=== PATIENT | female | born 1960 | race Caucasian/White ===

== ENCOUNTER 2017-06-16 15:50 | Emergency (ER) | payer OTHER ==
[~2017-06-16] VITALS: Ht 162.6 cm; Wt 136.1 kg
== END 2017-06-16 20:34 | disposition home or self-care (01) ==
LOC: ER 15:50
DX: R10.11 Right upper quadrant pain (principal)

== ENCOUNTER 2018-08-19 18:29 | Emergency (ER) | payer OTHER ==
[~2018-08-19] VITALS: Ht 162.6 cm; Wt 136.1 kg
[2018-08-19] MEDS ORDERED: TARKA ER 2-2401 EACH (18:45)
[2018-08-19] MEDS ORDERED: TOPROL XL50 M1 (18:45)
[2018-08-19] MEDS ORDERED: JENTADUETO 2.51 EAC2 (18:46)
== END 2018-08-19 22:37 | disposition home or self-care (01) ==
LOC: ER 18:29
DX: K80.20 Calculus of gallbladder without cholecystitis without obstruction (principal)

== ENCOUNTER 2021-08-14 09:21 | Emergency (ER) | payer OTHER ==
[~2021-08-14] VITALS: Ht 162.6 cm; Wt 127.0 kg
[~2021-08-14 09:21] MED LIST: JENTADUETO 2.51 EAC2; TARKA ER 2-2401 EACH; TOPROL XL50 M1
== END 2021-08-14 12:58 | disposition home or self-care (01) ==
LOC: ER 09:21
DX: K80.20 Calculus of gallbladder without cholecystitis without obstruction (principal); I10 Essential (primary) hypertension; E11.9 Type 2 diabetes mellitus without complications; Z91.013 Allergy to seafood; Z85.038 Personal history of other malignant neoplasm of large intestine; Z88.2 Allergy status to sulfonamides; Z79.84 Long term (current) use of oral hypoglycemic drugs

== ENCOUNTER 2023-01-05 07:59 | Emergency (ER) | payer OTHER ==
[~2023-01-05] VITALS: Ht 162.6 cm; Wt 127.0 kg
[2023-01-05] MEDS ORDERED: LOSARTAN-HCTZ1 EAC1 PO (08:08)
== END 2023-01-05 13:31 | disposition home or self-care (01) ==
LOC: ER 07:59
PROVIDERS: General Practice
DX: K29.90 Gastroduodenitis, unspecified, without bleeding (principal)

== ENCOUNTER 2023-02-15 01:27 | Emergency (ER) | payer OTHER ==
[~2023-02-15] VITALS: Ht 152.4 cm; Wt 124.7 kg
[~2023-02-15 01:27] MED LIST changes: +LOSARTAN-HCTZ1 EAC1 PO
[2023-02-15 06:47] LABS: HEMATOCRIT 40.1 % (36.0-45.00); HEMOGLOBIN 13.2 g/dL (12.0-15.00); MEAN CELL VOLUME 82.2 fL (80.00-100.00); MEAN CORPUSCULAR HGB CONC 32.9 g/dl (32.0-36.0); PLATELET COUNT 258 K/uL (150-450); RED BLOOD COUNT 4.87 M/uL (4.00-6.00); RED CELL DISTRIBUTION WIDTH 15.5 % (11.5-14.5)
[2023-02-15 06:54] LABS: INR 0.98; PROTHROMBIN TIME 10.3 SECONDS (9.0-11.5)
[2023-02-15 06:57] LABS: D DIMER 0.42 MG/L; PARTIAL THROMBOPLASTIN TIME 26.9 SECONDS (22.0-34.0)
[2023-02-15 07:13] LABS: ALBUMIN 3.6 gm/dL (3.4-5.0); BILIRUBIN TOTAL 0.33 mg/dL (0.3-1.2); CALCIUM 9.3 mg/dL (8.5-10.1); CREATININE SERUM 0.85 mg/dL (0.55-1.02); GFR 67.99; POTASSIUM 3.4 mEq/L (3.5-5.1); TOTAL PROTEIN 7.6 gm/dL (6.4-8.2)
== END 2023-02-15 10:00 | disposition home or self-care (01) ==
LOC: ER 01:27
PROVIDERS: General Practice
DX: M79.662 Pain in left lower leg (principal); I10 Essential (primary) hypertension; E11.9 Type 2 diabetes mellitus without complications; Z79.84 Long term (current) use of oral hypoglycemic drugs; Z88.2 Allergy status to sulfonamides; Z91.041 Radiographic dye allergy status